=== PATIENT | female | born 2000 | race Caucasian/White ===

== ENCOUNTER 2020-03-17 20:28 | Emergency (ER) | payer BC, MEDICAID ==
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
[2020-03-17] MEDS ORDERED: Ibuprofen 600 MG Tab PO ONE (21:25)
[2020-03-17 21:38] VITALS: BP 139/87; PULSE 92
--- NOTE | 2020-03-18 14:38 | CR ---
Right clavicle: 2 views of the right clavicle were obtained. Comparison: No previous clavicle study. Distal clavicle minimally elevated in relation to the acromioclavicular joint most likely representing minimal acromioclavicular separation. No acute fracture or other bony abnormality is appreciated. Impression: 1. Minimal acromioclavicular separation. Diagnostic code #3 This report was dictated in [facility]
--- NOTE | 2020-03-18 14:38 | CR ---
Right shoulder: 3 views of the right shoulder were obtained. Comparison: No previous shoulder study. Distal clavicle is minimally elevated in relation to the acromion process. Glenohumeral joint appears normal. No acute fracture or other abnormality is appreciated. Impression: 1. Findings suspicious for minimal acromioclavicular separation. 2. Right shoulder study is otherwise unremarkable. Diagnostic code #3 This report was dictated in MDT
== END 2020-03-17 21:39 | disposition home or self-care (01) ==
LOC: JD.ED 20:28
DX: S43.101A Unspecified dislocation of right acromioclavicular joint, initial encounter (principal); V86.59XA Driver of other special all-terrain or other off-road motor vehicle injured in nontraffic accident, initial encounter
CPT/HCPCS: 73000; 73030; 99284; A9270; 99282

== ENCOUNTER 2023-05-31 03:35 | Inpatient (IN) | payer MEDICAID ==
[2023-05-31] MEDS ORDERED: Ondansetron 4 MG/2 ML SDV IVPUSH PRN (04:36)
[2023-05-31] MEDS ORDERED: Acetaminophen 325 MG Tab PO PRN (04:36)
[2023-05-31] MEDS ORDERED: Calcium Carbonate 500 MG Tab.Chew PO PRN (04:36)
[2023-05-31] MEDS ORDERED: Nalbuphine HCl 10 MG/ 1ML Amp IVPUSH PRN (04:36)
[2023-05-31] MEDS ORDERED: Lidocaine 1% 50 ML MDV INJECT ONE (04:36)
[2023-05-31] MEDS ORDERED: Oxytocin/Lactated Ringers 30 UNIT/500 ML BAG IV SCH ×2 (04:45)
[2023-05-31] MEDS: Lactated Ringers 1,000 ML IV SCH ×3 (05:22→20:13)
[2023-05-31 05:33] LABS: BASOPHILS ABSOLUTE AUTO 0.1 K/mm3 (0.0-0.2); BASOPHILS PERCENT AUTO 0.5 % (0.0-1.0); EOSINOPHILS ABSOLUTE AUTO 0.2 K/mm3 (0.0-0.4); EOSINOPHILS PERCENT AUTO 1.6 % (0.0-6.0); IMMATURE GRAN ABSOLUTE AUTO 0.05 K/mm3 (0.00-0.05); IMMATURE GRAN PERCENT AUTO 0.5 % (0.0-0.4); LYMPHOCYTES ABSOLUTE AUTO 2.6 K/mm3 (1.0-4.8); LYMPHOCYTES PERCENT AUTO 25.5 % (24.0-44.0); MEAN CORPUSCULAR HEMOGLOBIN 28.6 pg (28.0-32.0); MEAN CORPUSCULAR HGB CONC 34.3 g/dl (32.0-36.0); MEAN CORPUSCULAR VOLUME 83.5 fl (83.0-99.0); MEAN PLATELET VOLUME 10.1 fl (9.4-12.3); MONOCYTES ABSOLUTE AUTO 0.7 K/mm3 (0.0-0.8); MONOCYTES PERCENT AUTO 7.2 % (0.0-8.0); NEUTROPHILS ABSOLUTE AUTO 6.6 K/mm3 (1.8-7.7); NEUTROPHILS PERCENT AUTO 64.7 % (41.0-71.0); PLATELET COUNT,PLT 276 K/mm3 (150-400); RED BLOOD CELL COUNT 4.19 M/mm3 (4.10-5.30); WHITE BLOOD CELL COUNT,WBC 10.15 K/mm3 (3.9-11.3)
[2023-05-31] MEDS ORDERED: ePHEDrine 50 MG/ML SDV IVPUSH PRN (09:20)
[2023-05-31] MEDS ORDERED: Bupivacaine/fentaNYL/NS 100 ML Bag EPIDUR PRN (09:20)
[2023-05-31] MEDS ORDERED: diphenhydrAMINE 50 MG/ML SDV IVPUSH PRN (09:20)
[2023-05-31] MEDS ORDERED: fentaNYL 100 MCG/2 ML SDV EPIDUR PRN (09:20)
[2023-05-31] MEDS ORDERED: Misoprostol 25 MCG (1/4 of 100 MCG) Tab PO ONE ×2 (09:56→15:34)
[2023-05-31] MEDS ORDERED: Lidocaine 1% 50 ML MDV INJECT SCH (10:00)
[2023-05-31] MEDS ORDERED: Famotidine 20 MG Tab PO PRN (22:11)
[2023-06-01] MEDS ORDERED: Bupivacaine 0.25% 10 ML SDV ONE
[2023-06-01] MEDS ORDERED: Oxytocin 10 Units/1 ML SDV IM ONE (02:34)
[2023-06-01] MEDS ORDERED: Witch Hazel Medicated Pads 40/Jar TOP PRN (02:34)
[2023-06-01] MEDS ORDERED: Benzocaine/Menthol 20%-0.5% Spray 78 GM Cannister TOP PRN (02:34)
[2023-06-01] MEDS: Ibuprofen 600 MG Tab PO PRN ×2 (08:53→20:00)
[2023-06-01] MEDS ORDERED: Docusate Sodium 100 MG Cap PO PRN (09:00)
[2023-06-01] MEDS ORDERED: Acetaminophen 325 MG Tab PO PRN (13:47)
[2023-06-02 10:54] VITALS: BP 121/76; PULSE 93
== END 2023-06-02 10:30 | disposition home or self-care (01) | DRG 807 ==
LOC: JD.OBCHECK 03:35 → JD.OB 03:38 → JD.OBCHECK 04:36 → JD.OB 04:37 → OBSVTOIN 06-01 01:59 → JD.OB 06-01 02:00
PROVIDERS: ADMIT Family Medicine; ATTEND Family Medicine
PROC: 10E0XZZ Delivery of Products of Conception, External Approach (ICD-10-PCS; principal; 2023-06-01)
PROC: 10907ZC Drainage of Amniotic Fluid, Therapeutic from Products of Conception, Via Natural or Artificial Opening (ICD-10-PCS; 2023-06-01)
PROC: 0UQMXZZ Repair Vulva, External Approach (ICD-10-PCS; 2023-06-01)
PROC: 3E0R3BZ Introduction of Anesthetic Agent into Spinal Canal, Percutaneous Approach (ICD-10-PCS; 2023-06-01)
PROC: 00HU33Z Insertion of Infusion Device into Spinal Canal, Percutaneous Approach (ICD-10-PCS; 2023-06-01)
PROC: 10H07YZ Insertion of Other Device into Products of Conception, Via Natural or Artificial Opening (ICD-10-PCS; 2023-06-01)
DX: O48.0 Post-term pregnancy (principal); Z37.0 Single live birth; O77.0 Labor and delivery complicated by meconium in amniotic fluid; O71.82 Other specified trauma to perineum and vulva; O76 Abnormality in fetal heart rate and rhythm complicating labor and delivery; O99.52 Diseases of the respiratory system complicating childbirth; J45.909 Unspecified asthma, uncomplicated; Z3A.40 40 weeks gestation of pregnancy; Z90.89 Acquired absence of other organs; Z98.890 Other specified postprocedural states
CPT/HCPCS: 36415; 51702; 59025; 59409; 84112; 85025; 86592; 86850; 86900; 86901; A9270-GY; J2405; J2590; J3010; J3490; J7120; J7999